=== PATIENT | female | born 1980 | race Caucasian/White ===

== ENCOUNTER → 2017-10-29 | Outpatient (CLI) | payer BC ==
--- NOTE | 2017-10-29 13:04 | PCVCIMAG ---
APPROVED REPORT Study performed: 10/29/2017 11:16:39 EXAM: Comprehensive 2D, Doppler, and color-flow Echocardiogram Patient Location: Echo lab Room #: 2Status: routine BSA: 2.08 HR: 62 bpmBP: 164/82 mmHg Rhythm: NSR Other Information Study Quality: Good Risk Factors: Cardiac Risk Factors: HTN Indications Atrial Fibrillation Dyspnea Parox a fib,Obst sleep apnea, anxiety 2D Dimensions LVEF(%): 81.01 (>50%) IVSd: 10.37 (7-11mm)LVOT Diam: 19.97 (18-24mm) LVDd: 55.74 mm PWd: 9.57 (7-11mm)Ascending Ao: 29.86 (22-36mm) LVDs: 27.74 (25-40mm) Left Atrium: 40.92 (27-40mm) Aortic Root: 23.02 mm LV Single Plane 4CH: 64.96 % LV Single Plane 2CH: 67.20 %Arriaza's LVEF: 66.08 % Biplane EF: 66.1 % Volumes Left Atrial Volume (Systole) Single Plane 4CH: 88.14 mLSingle Plane 2CH: 72.80 mL Biplane LA Volume: 84.00 mLLA ESV Index: 40.00 mL/m2 Aortic Valve AoV Peak Aniceto.: 2.06 m/s AO Peak Gr.: 15.45 mmHgLVOT Max P.94 mmHg AO Mean Gr.: 8.41 mmHg AO V2 Mean: 1.36 m/sLVOT Max V: 1.40 m/s AO V2 VTI: 42.52 cm ANAHY Vmax: 2.13 cm2 Mitral Valve E/A Ratio: 1.7 MV Decel. Time: 189.67 ms MV E Max Aniceto.: 1.06 m/s MV A Aniceto.: 0.61 m/s IVRT: 79.58 ms TDI E/Lateral E': 5.89E/Medial E': 7.57 Medial E' Aniceto.: 0.14 m/s Lateral E' Aniceto.: 0.18 m/s Pulmonary Valve PV Peak Aniceto.: 1.22 m/sPV Peak Gr.: 5.99 mmHg Pulmonary Vein P Vein S: 0.73 m/sP Vein A: 0.36 m/s P Vein D: 0.67 m/sP Vein A Dur.: 96.9 msec P Vein S/D Ratio: 1.09 Tricuspid Valve TV Vmax: 0.97 m/s Left Ventricle The left ventricle is normal size. There is normal LV segmental wall motion. There is normal left ventricular wall thickness. Left ventricular systolic function is normal. The left ventricular ejection fraction is within the normal range. LVEF is 65-70%. Left ventricular filling pattern is normal for age. Right Ventricle The right ventricle is normal size. The right ventricular systolic function is normal. Atria Left atrium is mildly dilated. The right atrium size is normal. Aortic Valve The aortic valve is not well visualized. Aortic valve is probably trileaflet. No aortic regurgitation is present. There is no aortic valvular stenosis. Mitral Valve The mitral valve is normal in structure. There is no mitral valve regurgitation noted. No evidence of mitral valve stenosis. Tricuspid Valve The tricuspid valve is normal in structure. No apparent pulmonary hypertension.No tricuspid regurgitation. Pulmonic Valve The pulmonary valve is normal in structure. There is no pulmonic valvular regurgitation. Great Vessels The aortic root is normal in size. The ascending aorta is normal in size. IVC is normal in size and collapses with >50% inspiration Pericardium There is no pericardial effusion. There is no pleural effusion. <Conclusion> The left ventricle is normal size. There is normal left ventricular wall thickness. Left ventricular systolic function is normal. Left ventricular filling pattern is normal for age. The right ventricle is normal size. Left atrium is mildly dilated. There is no aortic valvular stenosis. There is no mitral valve regurgitation noted. There is no pericardial effusion.
--- NOTE | 2017-10-29 13:07 | PCVCIMAG ---
APPROVED REPORT Exam: Stress Echocardiogram Indication: Palpitations , Dyspnea , Hypertension Patient Location: Echo lab Stress Nurse: Marina Nieto RN Room #: 2 Status: routine Ht: 5 ft 4 in HR: 83 bpm BP: 164/82 mmHg Rhythm: NSR Medical History Medical History: Parox Atrial Fibrillation,HTN,NOBLES,VAL Cardiac Risk Factors: HTN Previous Cardiac Procedures: NONE Pretest Chest Pain Characteristics: No chest pain Procedure The patient underwent an Exercise Stress Test using the Ifeanyi Protocol. Blood pressure, heart rate, and EKG were monitored. An Echocardiogram was performed by corrosion technician in four stages in quad fashion. At peak stress, four selected images were obtained and placed side by side with resting images for comparison. Stress Test Details Stress Test: Exercise stress testing was performed using a Ifeanyi protocol. HR Resting HR: 83 bpmMax Heart Rate (APMHR): 183 bpm Max HR Achieved: 171 bpmTarget HR (85% APMHR): 155 bpm % of APMHR: 93 Recovery HR: 101 bpm HR response to stress: Normal HR response to stress BP Resting BP: 164/82 mmHg Max BP: 190/90 mmHg Recovery BP: 142/80 mmHg ECG Resting ECG: Sinus Rhythm Stress ECG: Sinus Rhythm ST Change: Non-ischemic Arrhythmia: OCCASIONAL PVCs Recovery ECG: Sinus Rhythm Recovery ST Change: Non-ischemic Recovery Arrhythmia: None Clinical Reason for Termination: Maximal effort Stress Symptoms: none Exercise duration: 9 min 23 sec Highest Stage Achieved: Stage 4: 4.2 mph at 16% grade. Exercise capacity: 11.2 METs Overall Exercise Capacity for Age: Normal Angina Score: None Stress ECG Conclusion The patient exercised according to the Ifeanyi Protocol for 9:23 minutes, achieving a maximum work level of 11.2 METS. The resting heart rate of 83 bpm, beata to a maximal level of 171 bpm. This value represents 93 % of the maximal, age-predicted heart rate. The resting blood pressure of164/82 mmHg, beata to a maximum blood pressure of 190/90 mmHg. The exercise was stopped due to fatigue. Pre-Stress Echo The resting Echocardiogram showed normal left ventricular contractility with an estimated Ejection Fraction of about 60-65%. Normal wall motion in all segments on baseline images. Post-Stress Echo The stress Echocardiogram showed normal left ventricular contractility with an estimated Ejection Fraction of about 65-70%. Normal augmentation of wall motion in all segments on post stress images. Clinical No clinical or ECG evidence for ischemia. Conclusion Clinical Response: Non-ischemic Exercise Capacity: Above average Stress ECG Response: Non-ischemic Stress Echo Images: Non-ischemic No clinical, EKG or echocardiographic evidence for ischemia. No echocardiographic evidence for exercise induced ischemia. Normal stress echocardiogram with maximal exercise stress. <Conclusion> No clinical, EKG or echocardiographic evidence for ischemia. No echocardiographic evidence for exercise induced ischemia. Normal stress echocardiogram with maximal exercise stress.
== END | disposition home or self-care (01) ==
LOC: PCVCIMAG 10:47
PROVIDERS: ATTEND Internal Medicine Cardiovascular Disease
DX: I48.0 Paroxysmal atrial fibrillation (principal); R06.00 Dyspnea, unspecified; G47.33 Obstructive sleep apnea (adult) (pediatric); F41.9 Anxiety disorder, unspecified; R00.2 Palpitations; I10 Essential (primary) hypertension
CPT/HCPCS: 93306; 93351

== ENCOUNTER → 2018-10-05 | Outpatient (CLI) | payer BC ==
--- NOTE | 2018-10-05 09:25 | PCVCIMAG ---
APPROVED REPORT Study performed: 10/05/2018 08:16:31 EXAM: Comprehensive 2D, Doppler, and color-flow Echocardiogram Patient Location: Echo lab Status: routine BSA: 2.18 HR: 70 bpmBP: 130/80 mmHg Rhythm: NSR Other Information Study Quality: Good Risk Factors: Cardiac Risk Factors: HTN Indications Atrial Fibrillation Hypertension/HDD 2D Dimensions IVSd: 9.84 (7-11mm)LVOT Diam: 19.04 (18-24mm) LVDd: 55.62 mm PWd: 8.29 (7-11mm)Ascending Ao: 29.85 (22-36mm) LVDs: 32.66 (25-40mm) Left Atrium: 44.35 (27-40mm) Aortic Root: 22.08 mm LV Single Plane 4CH: 62.57 % LV Single Plane 2CH: 67.91 % Biplane EF: 65.5 % Volumes Left Atrial Volume (Systole) Single Plane 4CH: 81.07 mLSingle Plane 2CH: 99.40 mL LA ESV Index: 42.00 mL/m2 Aortic Valve AoV Peak Aniceto.: 1.80 m/s AO Peak Gr.: 12.98 mmHg Mitral Valve E/A Ratio: 1.8 MV Decel. Time: 196.64 ms MV E Max Aniceto.: 1.01 m/s MV A Aniceto.: 0.57 m/s IVRT: 69.20 ms TDI E/Lateral E': 6.73E/Medial E': 5.94 Medial E' Aniceto.: 0.17 m/s Lateral E' Aniceto.: 0.15 m/s Pulmonary Vein P Vein S: 0.64 m/sP Vein A: 0.34 m/s P Vein D: 0.60 m/sP Vein A Dur.: 107.3 msec P Vein S/D Ratio: 1.07 Left Ventricle The left ventricle is normal size. There is normal LV segmental wall motion. There is normal left ventricular wall thickness. Left ventricular systolic function is normal. The left ventricular ejection fraction is within the normal range. LVEF is 60-65%. The left ventricular diastolic function is normal. Right Ventricle The right ventricle is normal size. The right ventricular systolic function is normal. Atria The left atrium size is normal. The right atrium size is normal. Aortic Valve The aortic valve is normal in structure. No aortic regurgitation is present. There is no aortic valvular stenosis. Mitral Valve The mitral valve is normal in structure. There is no mitral valve regurgitation noted. No evidence of mitral valve stenosis. Tricuspid Valve The tricuspid valve is normal in structure. There is no tricuspid valve regurgitation noted. Pulmonic Valve The pulmonary valve is normal in structure. There is no pulmonic valvular regurgitation. Great Vessels The aortic root is normal in size. IVC is normal in size and collapses >50% with inspiration. Pericardium There is no pericardial effusion. <Conclusion> The left ventricle is normal size. There is normal left ventricular wall thickness. Left ventricular systolic function is normal. The left ventricular diastolic function is normal. The right ventricle is normal size. The left atrium size is normal. The aortic valve is normal in structure. The mitral valve is normal in structure. There is no tricuspid valve regurgitation noted.
== END | disposition home or self-care (01) ==
LOC: PCVCIMAG 08:18
PROVIDERS: ATTEND Internal Medicine Cardiovascular Disease
DX: I48.0 Paroxysmal atrial fibrillation (principal); I10 Essential (primary) hypertension; R00.2 Palpitations
CPT/HCPCS: 93306